=== PATIENT | female | born 1985 | race Caucasian/White ===

== ENCOUNTER 2022-05-21 09:00 | Emergency (ER) | payer MEDICAID ==
[~2022-05-21] VITALS: Ht 154.9 cm; Wt 70.0 kg
[2022-05-21] MEDS ORDERED: LIDOcaine/PRILOcaine 5gm cream TP ONE (11:40)
[2022-05-21] MEDS ORDERED: LIDOCAINE 2%/EPI 1:100,000 inj. Multi-dose 20 ML VIAL IJ ONE (11:40)
[2022-05-21] MEDS ORDERED: SULF1TAB49 PO (12:55)
[2022-05-21 13:10] VITALS: BP 120/75
== END 2022-05-21 13:13 | disposition home or self-care (01) ==
LOC: ER 09:01
DX: N61.1 Abscess of the breast and nipple (principal); L03.313 Cellulitis of chest wall
CPT/HCPCS: 76881; 99284; A6258

== ENCOUNTER 2022-09-16 10:13 | Outpatient (CLI) | payer MEDICAID | END 2022-09-16 23:59 | disposition home or self-care (01) | LOC: LAB SPEC 10:13 | PROVIDERS: ATTEND Surgery | DX: N61.0 Mastitis without abscess (principal) | CPT/HCPCS: 87070 ==

== ENCOUNTER 2023-06-15 10:09 | Inpatient (IN) | payer MEDICAID ==
[~2023-06-15] VITALS: Ht 154.9 cm; Wt 72.9 kg
[2023-06-15 10:40] LABS: URINE HCG NEGATIVE (NEG)
[2023-06-15 10:42] LABS: BILIRUBIN,URINE NEGATIVE (Neg); CLARITY,URINE SLIGHTLY CLOUDY (Clear); COLOR,URINE YELLOW (Yellow); GLUCOSE, URINE NEGATIVE (Neg); KETONES,URINE NEGATIVE (Neg); LEUKOCYTE ESTERASE ,URINE TRACE (Neg); NITRITES, URINE NEGATIVE (Neg); OCCULT BLOOD,URINE LARGE (Neg); PH,URINE 6.5 (4.8-8.0); PROTEIN,URINE NEGATIVE (Neg); UROBILINOGEN,URINE 0.2 E.U/dL (0.2-1.0)
[2023-06-15 10:55] LABS: UA COLLECTION TYPE CLN CATCH MIDSTREAM
[2023-06-15 10:58] LABS: BACTERIA,URINE 2+ /HPF (Neg); RBC,URINE 0-2 /HPF (0-2); SQUAMOUS EPITHELIAL CELL,UR MANY /LPF (FEW)
[2023-06-15 10:59] LABS: MUCUS STRANDS NONE SEEN /LPF (Neg)
[2023-06-15 12:04] LABS: BASOPHILS # (AUTO) 0.1 X10'3 (0-0.2); BASOPHILS % (AUTO) 0.9 % (0-1); EOSINOPHILS # (AUTO) 0.1 X10'3 (0-0.9); EOSINOPHILS % (AUTO) 1.4 % (0-6); HEMATOCRIT 40.5 % (35.0-45.0); HEMOGLOBIN 13.7 g/dl (12.0-16.0); LYMPHOCYTES # (AUTO) 2.7 X10'3 (1.1-4.8); LYMPHOCYTES % (AUTO) 32.3 % (21-51); MEAN CORPUSCULAR HEMOGLOBIN 31.3 PG (27.0-31.0); MEAN CORPUSCULAR HGB CONC 33.8 g/dL (33.0-36.5); MEAN CORPUSCULAR VOLUME 92.7 FL (78-98); MEAN PLATELET VOLUME 9.2 FL (7.4-10.4); MONOCYTES # (AUTO) 0.4 X10'3 (0-0.9); MONOCYTES % (AUTO) 5.1 % (2-12); NEUTROPHILS # (AUTO) 5.1 X10'3 (1.8-7.7); NEUTROPHILS % (AUTO) 60.3 % (42-75); PLATELET COUNT 257 X10'3 (140-440); RED BLOOD COUNT 4.36 X10'6 (4.20-5.60); RED CELL DISTRIBUTION WIDTH 13.2 % (11.5-14.5); WHITE BLOOD COUNT 8.4 X10'3 (4.5-11.0)
[2023-06-15 12:44] LABS: ALANINE AMINOTRANSFERASE 16 U/L (12-78); ALBUMIN 3.4 G/DL (3.4-5.0); ALBUMIN/GLOBULIN RATIO 0.9 (1.1-1.5); ALKALINE PHOSPHATASE 37 IU/L (46-116); ANION GAP 8 (8-16); ASPARTATE AMINO TRANSFERASE 15 U/L (10-37); BILIRUBIN,TOTAL 0.6 MG/DL (0.1-1.0); BLOOD UREA NITROGEN 9 MG/DL (7-18); BUN/CREATININE RATIO 12.2 (10.0-20.0); CHLORIDE 108 MMOL/L (99-107); CREATININE 0.74 MG/DL (0.40-0.90); GLUCOSE 111 MG/DL (70-104); LIPASE 19 U/L (16-77); POTASSIUM 3.7 MMOL/L (3.5-5.1); SODIUM 143 MMOL/L (135-145); TOTAL CARBON DIOXIDE 27.4 MMOL/L (24-32); TOTAL PROTEIN 7.1 G/DL (6.4-8.2); eCRCL 79 ML/MIN; eGFR 89 ML/MIN
[2023-06-15 13:16] LABS: HCG SERUM QL NEGATIVE
[2023-06-15] MEDS ORDERED: SERT-434 PO (16:33)
[2023-06-15] MEDS ORDERED: ACET-75 PO (16:33)
[2023-06-15] MEDS ORDERED: magnesium 2GM in 50ml NS 50 ML IV PRN (17:40)
[2023-06-15] MEDS ORDERED: magnesium 4gm in 100ml NS 100 ML IV PRN (17:40)
[2023-06-15] MEDS ORDERED: magnesium hydroxide 30ml (MOM) UD suspension PO PRN (17:40)
[2023-06-15] MEDS ORDERED: morphine 2 MG/ML inj. syringe IV PRN ×2 (17:40)
[2023-06-15] MEDS ORDERED: mag hydrox/Alum hydrox/simeth 30ml oral suspension PO PRN (17:40)
[2023-06-15] MEDS ORDERED: potassium Cl 40MEQ/1/2NS 520ml 520 ML IV PRN (17:40)
[2023-06-15] MEDS ORDERED: ondansetron/PF 4mg/2ml inj IV PRN (17:40)
[2023-06-15] MEDS ORDERED: HYDROcodone/acetaminophen 5mg/325mg tablet PO PRN (17:40)
[2023-06-15] MEDS ORDERED: acetaminophen 325mg tablet PO PRN ×2 (17:40)
[2023-06-15] MEDS ORDERED: potassium Cl 20 mEq SR tablet PO PRN ×2 (17:40)
[2023-06-15] MEDS ORDERED: HYDROcodone/acetaminophen 10/325mg tab PO PRN (17:40)
[2023-06-15] MEDS: dicyclomine 10 MG capsule PO ONE (18:50)
[2023-06-15] MEDS: ondansetron 4mg rapidly disintigrating tab PO ONE (18:51)
[2023-06-15] MEDS: morphine 4 MG/ML inj SYRINge IV ONE (18:51)
[2023-06-15] MEDS: piperacillin/tazo 3.375gm/50ml 50 ML IV ONE (19:33)
[2023-06-15] MEDS: docusate sod 100mg capsule PO SCH (20:00)
[2023-06-15] MEDS: K and/or MAG REPLACEMENT MC SCH (20:00)
[2023-06-15] MEDS: dextrose 5%-1/2 normal saline 1,000 ML IV SCH (22:42)
[2023-06-15 23:05] VITALS: BP 112/76; PULSE 88; RESP 14; TEMP 97.9; O2SAT 97
[2023-06-15 23:15] VITALS: RESP 14; O2SAT 97
[2023-06-16] VITALS (20 sets, daily range): BP systolic 78–123; BP diastolic 42–72; PULSE 52–95; RESP 14–26; TEMP 97.2–98.8; O2SAT 94–98
[2023-06-16 05:34] LABS: BASOPHILS # (AUTO) 0.1 X10'3 (0-0.2); EOSINOPHILS # (AUTO) 0.4 X10'3 (0-0.9); EOSINOPHILS % (AUTO) 3.9 % (0-6); HEMATOCRIT 38.1 % (35.0-45.0); HEMOGLOBIN 12.8 g/dl (12.0-16.0); LYMPHOCYTES # (AUTO) 4.1 X10'3 (1.1-4.8); LYMPHOCYTES % (AUTO) 45.5 % (21-51); MEAN CORPUSCULAR HEMOGLOBIN 31.2 PG (27.0-31.0); MEAN CORPUSCULAR HGB CONC 33.6 g/dL (33.0-36.5); MEAN CORPUSCULAR VOLUME 92.9 FL (78-98); MEAN PLATELET VOLUME 9.1 FL (7.4-10.4); MONOCYTES # (AUTO) 0.7 X10'3 (0-0.9); MONOCYTES % (AUTO) 8.2 % (2-12); NEUTROPHILS # (AUTO) 3.8 X10'3 (1.8-7.7); NEUTROPHILS % (AUTO) 41.4 % (42-75); PLATELET COUNT 254 X10'3 (140-440); RED BLOOD COUNT 4.11 X10'6 (4.20-5.60); RED CELL DISTRIBUTION WIDTH 12.9 % (11.5-14.5); WHITE BLOOD COUNT 9.1 X10'3 (4.5-11.0)
[2023-06-16 05:41] LABS: ALBUMIN 2.9 G/DL (3.4-5.0); ALBUMIN/GLOBULIN RATIO 0.8 (1.1-1.5); ALKALINE PHOSPHATASE 29 IU/L (46-116); ANION GAP 9 (8-16); APTT 28 SECONDS (22-32); ASPARTATE AMINO TRANSFERASE 10 U/L (10-37); BILIRUBIN,TOTAL 0.5 MG/DL (0.1-1.0); BLOOD UREA NITROGEN 12 MG/DL (7-18); BUN/CREATININE RATIO 15.6 (10.0-20.0); CALCIUM 8.1 MG/DL (8.5-10.1); CHLORIDE 109 MMOL/L (99-107); CREATININE 0.77 MG/DL (0.40-0.90); GLUCOSE 93 MG/DL (70-104); MAGNESIUM 2.2 MG/DL (1.5-2.4); POTASSIUM 4.1 MMOL/L (3.5-5.1); SODIUM 141 MMOL/L (135-145); TOTAL CARBON DIOXIDE 22.7 MMOL/L (24-32); TOTAL PROTEIN 6.4 G/DL (6.4-8.2); eCRCL 76 ML/MIN; eGFR 85 ML/MIN
[2023-06-16 05:44] LABS: ALANINE AMINOTRANSFERASE < 6 U/L (12-78); PROTHROMBIN TIME 10.6 SECONDS (9.0-12.0)
[2023-06-16] MEDS: CefTRIAXone/D5W-Rocephin 1gm 50 ML IV SCH (07:57)
[2023-06-16] MEDS: pantoprazole 40 MG vial IV SCH (07:58)
[2023-06-16] MEDS: normal saline 1000ml 1,000 ML IV SCH (08:05)
[2023-06-16] MEDS: INDOCYANINE GREEN 25 MG/10 ML VIAL IV ONE (09:18)
[2023-06-16] MEDS ORDERED: sevoflurane 250ml liquid IH ONE (10:04)
[2023-06-16] MEDS ORDERED: propofol inj 20 ML IV ONE (10:04)
[2023-06-16] MEDS ORDERED: fentaNYL/PF 50MCG/1 ML 2ML syringe ONE (10:04)
[2023-06-16] MEDS ORDERED: midazolam 1 mg/ML 2ml injection ONE (10:04)
[2023-06-16] MEDS ORDERED: rocuronium 10mg/ml inj IV ONE (10:04)
[2023-06-16] MEDS ORDERED: ceFAZolin 1000mg inj ONE ×2 (10:19)
[2023-06-16] MEDS ORDERED: dexamethasone sod phosphate 4mg/ml inj. ONE (10:24)
[2023-06-16] MEDS ORDERED: ondansetron/PF 4mg/2ml inj ONE (10:25)
[2023-06-16] MEDS: LIDOcaine 1% 30ml preserv. free vial ONE (10:29)
[2023-06-16] MEDS: BUPIVAcaine/PF 2.5mg/ml (0.25%) 10ml vial ONE (10:29)
[2023-06-16] MEDS ORDERED: meperidine/PF 25mg/ml syringe IV PRN (10:50)
[2023-06-16] MEDS ORDERED: morphine 2 MG/ML inj. syringe IV PRN (10:50)
[2023-06-16] MEDS ORDERED: morphine 4 MG/ML inj SYRINge IV PRN (10:50)
[2023-06-16] MEDS ORDERED: glycopyrrolate 0.2mg/ml inj ONE (10:57)
[2023-06-16] MEDS ORDERED: neostigmine methylsulfate 1 MG/ML 10ml vial ONE (10:57)
[2023-06-16] MEDS: ondansetron/PF 4mg/2ml inj IV PRN (11:19)
[2023-06-16] MEDS ORDERED: naloxone 0.4 mg/ml inj IV PRN (11:20)
[2023-06-16] MEDS: acetaminophen 325mg tablet PO SCH (11:20)
[2023-06-16] MEDS: meperidine/PF 25mg/ml syringe IV PRN ×2 (11:20→11:32)
[2023-06-16] MEDS ORDERED: ondansetron/PF 4mg/2ml inj IV PRN (11:20)
[2023-06-16] MEDS: proCHLORperazine 10 MG/2 ml inj IV PRN (11:41)
[2023-06-16] MEDS: ketorolac trometh. 30mg/ml inj. IV SCH (12:06)
[2023-06-16] MEDS: acetaminophen 1,000mg/100ml IV 100 ML IV ONE (12:11)
[2023-06-16] MEDS: ringers solution, lacted 1,000 ML IV SCH (15:20)
== END 2023-06-16 18:15 | disposition home or self-care (01) | DRG 263 ==
LOC: ER 10:09 → ED HOLD 17:48 → SUR 3N 22:58
PROVIDERS: ADMIT Family Medicine; ATTEND Family Medicine
PROC: BF522Z0 Other Imaging of Gallbladder using Fluorescing Agent, Intraoperative (ICD-10-PCS; 2023-06-16)
PROC: 8E0W4CZ Robotic Assisted Procedure of Trunk Region, Percutaneous Endoscopic Approach (ICD-10-PCS; 2023-06-16)
PROC: 0FT44ZZ Resection of Gallbladder, Percutaneous Endoscopic Approach (ICD-10-PCS; principal; 2023-06-16 10:04)
DX: K80.20 Calculus of gallbladder without cholecystitis without obstruction (principal); F12.90 Cannabis use, unspecified, uncomplicated; Z20.822 Contact with and (suspected) exposure to COVID-19; F17.210 Nicotine dependence, cigarettes, uncomplicated; K82.8 Other specified diseases of gallbladder; Z86.14 Personal history of Methicillin resistant Staphylococcus aureus infection; Z71.6 Tobacco abuse counseling
CPT/HCPCS: 36415; 76700; 80053; 81001; 81025; 82948; 83605; 83690; 83735; 84100; 84703; 85025; 85610; 85730; 86885; 86900; 86901; 87040; 87081; 87811; 93005; 99285; A4215; A4618; A7000; C9113; G0378; J0131; J0690; J0696; J0780; J1100; J1885; J2175; J2250; J2405; J2543; J2704; J2710; J3010; J3490; J7030; J7120